=== PATIENT | male | born 1960 | race Caucasian/White ===

== ENCOUNTER 2019-08-08 18:22 | Emergency (ER) | payer OTHER ==
[~2019-08-08] VITALS: Ht 160 cm; Wt 76.2 kg
[2019-08-08 18:39] VITALS: Ht 160 cm; Wt 76.2 kg
[2019-08-08 18:49] LABS: BASOPHIL % 0.1 % (0-2); PLATELET COUNT 181 x10^3mcL (130-400); RED CELL DISTRIBUTION WIDTH 12.7 % (11.5-14.5)
[2019-08-08 19:05] LABS: ALBUMIN 4.1 g/dL (3.4-5.0); ALKALINE PHOSPHATASE 71 U/L (46-116); ALT/SGPT 66 U/L (16-63); AST/SGOT 42 U/L (15-37); BILIRUBIN TOTAL 0.79 mg/dL (0.20-1.00); CALCIUM 9.3 mg/dL (8.5-10.1); CARBON DIOXIDE 28.7 mmol/L (21-32); CHLORIDE SERUM 102 mmol/L (98-107); CHOLESTEROL 162 mg/dL (<200); CREATININE SERUM 0.9 mg/dL (0.7-1.3); GFR1 > 60 mL/min; GLUCOSE SERUM 137 mg/dL (74-106); SODIUM SERUM 140 mmol/L (136-145); TOTAL PROTEIN, SERUM 7.6 g/dL (6.4-8.2)
[2019-08-08] MEDS ORDERED: HCTZ/LISINOPRIL1 TA2 PO (20:49)
[2019-08-08] MEDS ORDERED: LOPRESSOR100 M1 PO (20:50)
[2019-08-08] MEDS ORDERED: APR10 PO (20:51)
[2019-08-08] MEDS ORDERED: AMLODIPINE BESY1 T14 PO (20:53)
[2019-08-09 02:53] VITALS: BP 149/87
== END 2019-08-09 02:53 | disposition short-term general hospital (02) ==
LOC: ED 18:22
PROVIDERS: Specialist
DX: I63.9 Cerebral infarction, unspecified (principal); I21.4 Non-ST elevation (NSTEMI) myocardial infarction; I10 Essential (primary) hypertension
CPT/HCPCS: 82962; G0480; J7030; Q0092; Q9967